=== PATIENT | female | born 1985 | race Caucasian/White ===

== ENCOUNTER 2018-04-29 18:38 | Emergency (ER) | payer OTHER ==
[~2018-04-29] VITALS: Ht 172.7 cm; Wt 83.1 kg
[2018-04-29 18:42] VITALS: Ht 172.7 cm; Wt 83.1 kg
[2018-04-29 21:43] VITALS: BP 124/86
== END 2018-04-29 21:43 | disposition home or self-care (01) ==
LOC: ED 18:38
DX: J20.9 Acute bronchitis, unspecified (principal); R11.10 Vomiting, unspecified; R10.9 Unspecified abdominal pain; M54.9 Dorsalgia, unspecified; Z88.0 Allergy status to penicillin; Z55.8 Other problems related to education and literacy

== ENCOUNTER 2018-07-10 05:07 | Emergency (ER) | payer OTHER ==
[~2018-07-10] VITALS: Ht 172.7 cm; Wt 81.2 kg
[2018-07-10 05:16] VITALS: Ht 172.7 cm; Wt 81.2 kg
[2018-07-10 06:50] VITALS: BP 109/73
== END 2018-07-10 06:50 | disposition home or self-care (01) ==
LOC: ED 05:07
DX: N39.0 Urinary tract infection, site not specified (principal); G43.909 Migraine, unspecified, not intractable, without status migrainosus; Z88.0 Allergy status to penicillin; Z88.5 Allergy status to narcotic agent

== ENCOUNTER 2018-12-04 22:59 | Emergency (ER) | payer OTHER ==
[~2018-12-04] VITALS: Ht 172.7 cm; Wt 87.6 kg
[2018-12-04 23:10] VITALS: BP 121/76; Ht 172.7 cm; Wt 87.6 kg
== END 2018-12-05 00:49 | disposition home or self-care (01) ==
LOC: ED 22:59
DX: J06.9 Acute upper respiratory infection, unspecified (principal); Z88.0 Allergy status to penicillin; Z88.5 Allergy status to narcotic agent; G43.909 Migraine, unspecified, not intractable, without status migrainosus

== ENCOUNTER 2019-02-23 22:52 | Emergency (ER) | payer OTHER ==
[~2019-02-23] VITALS: Ht 172.7 cm; Wt 86.2 kg
[2019-02-23 23:07] VITALS: Ht 172.7 cm; Wt 86.2 kg
[2019-02-24 01:26] VITALS: BP 128/85
== END 2019-02-24 01:26 | disposition home or self-care (01) ==
LOC: ED 22:52
DX: J02.9 Acute pharyngitis, unspecified (principal); H92.02 Otalgia, left ear; R11.0 Nausea; G43.909 Migraine, unspecified, not intractable, without status migrainosus; Z88.0 Allergy status to penicillin; Z88.5 Allergy status to narcotic agent
CPT/HCPCS: J1100; J1885

== ENCOUNTER 2020-04-18 19:24 | Emergency (ER) | payer OTHER ==
[~2020-04-18] VITALS: Ht 172.7 cm; Wt 84.4 kg
[2020-04-18 19:40] VITALS: Ht 172.7 cm; Wt 84.4 kg
[2020-04-18 20:29] LABS: BASOPHIL % 0.9 % (0-2); PLATELET COUNT 183 x10^3mcL (130-400); RED CELL DISTRIBUTION WIDTH 13.6 % (11.5-14.5)
[2020-04-18 20:51] LABS: CALCIUM 8.7 mg/dL (8.5-10.1); CARBON DIOXIDE 26.3 mmol/L (21-32); CHLORIDE SERUM 103 mmol/L (98-107); CREATININE SERUM 0.9 mg/dL (0.6-1.0); GFR1 > 60 mL/min; GLUCOSE SERUM 108 mg/dL (74-106); POTASSIUM SERUM 3.4 mmol/L (3.5-5.1); SODIUM SERUM 138 mmol/L (136-145)
[2020-04-18 20:57] LABS: ALKALINE PHOSPHATASE 56 U/L (46-116); ALT/SGPT 24 U/L (14-59); AST/SGOT 9 U/L (15-37); BILIRUBIN TOTAL 0.21 mg/dL (0.20-1.00); TOTAL PROTEIN, SERUM 7.7 g/dL (6.4-8.2)
[2020-04-18 23:08] VITALS: BP 135/90
== END 2020-04-18 23:08 | disposition home or self-care (01) ==
LOC: ED 19:24
PROVIDERS: Emergency Medicine
DX: R10.31 Right lower quadrant pain (principal); G43.909 Migraine, unspecified, not intractable, without status migrainosus; Z88.0 Allergy status to penicillin; Z88.5 Allergy status to narcotic agent; Z88.6 Allergy status to analgesic agent

== ENCOUNTER 2020-10-17 05:19 | Emergency (ER) | payer OTHER ==
[~2020-10-17] VITALS: Ht 172.7 cm; Wt 86.2 kg
[2020-10-17 05:22] VITALS: Ht 172.7 cm; Wt 86.2 kg
[2020-10-17 08:44] VITALS: BP 126/87
== END 2020-10-17 08:44 | disposition home or self-care (01) ==
LOC: ED 05:19
DX: M79.10 Myalgia, unspecified site (principal); G43.909 Migraine, unspecified, not intractable, without status migrainosus; Z88.0 Allergy status to penicillin; Z88.5 Allergy status to narcotic agent; Z20.828 Contact with and (suspected) exposure to other viral communicable diseases
CPT/HCPCS: J1885